=== PATIENT | male | born 1950 | race African-American/Black ===

== ENCOUNTER 2022-09-20 14:20 | Inpatient (IN) | payer OTHER ==
[2022-09-20 15:18] VITALS: BMI 31.2
[2022-09-20] MEDS ORDERED: CYCLOBENZAPRINE HCL 10 MG TABLET (FP) PO PRN (19:07)
[2022-09-20] MEDS ORDERED: MAG HYDROX/AL HYDROX/SIMETH 30 ML UNIT-DOSE CUP PO PRN (19:36)
[2022-09-20] MEDS ORDERED: MELATONIN 5 MG TABLETS PO PRN (19:36)
[2022-09-20] MEDS ORDERED: MAGNESIUM HYDROX 2400MG/30ML ORAL SUSPENSION 30 ML CUP PO PRN (19:36)
[2022-09-20] MEDS ORDERED: LOPERAMIDE HCL 2 MG CAPSULE PO PRN (19:36)
[2022-09-20] MEDS ORDERED: guaiFENesin 600 MG TABLET.ER (FP) PO PRN (19:36)
[2022-09-20] MEDS ORDERED: COLLOIDAL OATMEAL 1 BAR EACH TP PRN (19:36)
[2022-09-20] MEDS ORDERED: AMMONIUM LACTATE 12% LOTION 225 GM BOTTLE TP PRN (19:36)
[2022-09-20] MEDS ORDERED: P-EPHED 60MG/TRIPROLIDI 2.5MG TABLET PO PRN (19:36)
[2022-09-20] MEDS ORDERED: ACETAMINOPHEN 325 MG TABLET (FP) PO PRN (19:36)
[2022-09-20] MEDS ORDERED: POLYETHYLENE GLYCOL (HEALTHYLAX) 3350 17 GM PACKET PO PRN (19:36)
[2022-09-20] MEDS ORDERED: BENZONATATE 200 MG CAPSULE PO PRN (19:36)
[2022-09-20] MEDS ORDERED: BENZOCAINE/MENTHOL (CHLORASEPTIC ) LOZENGE MM PRN (19:36)
[2022-09-20] MEDS ORDERED: TUBERCULIN PPD 5 TU/0.1ML SYRINGE (IN PATIENT USE ONLY) ID ONE (20:15)
[2022-09-20] MEDS ORDERED: HYDROCHLOROTHIAZIDE 12.5 MG CAPSULE (FP) ONE (20:15)
[2022-09-20] MEDS ORDERED: TUBERCULIN PPD 5 TU/0.1ML VIAL ID ONE (20:34)
[2022-09-20] MEDS: HYDROCHLOROTHIAZIDE 12.5 MG CAPSULE (FP) PO SCH (21:01)
[2022-09-20] MEDS: PETROLATUM, WHITE 30 GM TUBE TP SCH (21:11)
[2022-09-20] MEDS ORDERED: THIAMINE HCL 100 MG TABLET (FP) PO SCH (22:00)
[2022-09-21 06:49] VITALS: RESP 18; TEMP 97.5
[2022-09-21] MEDS ORDERED: CALC PO SCH (10:00)
[2022-09-21] MEDS ORDERED: MAGNES PO SCH (10:00)
[2022-09-21] MEDS ORDERED: ASCORBIC ACID 500 MG TABLET (FP) PO SCH (10:00)
[2022-09-21] MEDS ORDERED: B6 PO SCH (10:00)
[2022-09-21] MEDS ORDERED: [UNRECOGNIZED DRUG - OTHER] PO SCH (10:00)
[2022-09-21] MEDS ORDERED: ASCORBIC ACID 1000 MG PO SCH (10:00)
[2022-09-21] MEDS ORDERED: D3 PO SCH (10:00)
[2022-09-21] MEDS ORDERED: PRENATAL VITAMINS W/ FOLIC ACID TABLET (FP) PO SCH (10:00)
[2022-09-21] MEDS ORDERED: MANGAN PO SCH (10:00)
[2022-09-21] MEDS: HYDROCHLOROTHIAZIDE 12.5 MG CAPSULE (FP) PO SCH (10:31)
[2022-09-21] MEDS: PETROLATUM, WHITE 30 GM TUBE TP SCH (10:32)
[2022-09-21 11:47] LABS: PH,URINE 6.5 (5.0-8.0); URINE APPEARANCE CLEAR; URINE BILIRUBIN NEGATIVE (NEGATIVE); URINE COLOR DK YELLOW; URINE GLUCOSE (UA) NEGATIVE (NEGATIVE); URINE KETONE NEGATIVE (NEGATIVE); URINE LEUK ESTERASE NEGATIVE (NEGATIVE); URINE NITRITE NEGATIVE (NEGATIVE); URINE PROTEIN NEGATIVE (NEGATIVE); URINE UROBILINOGEN 0.2 mg/dL (0.2-1.0)
[2022-09-21 18:22] VITALS: BP 188/118; PULSE 80
== END 2022-09-21 18:00 | disposition left against medical advice (07) | DRG 894 ==
LOC: YASAS 14:20 → Y3W 20:12
PROVIDERS: ADMIT Allergy & Immunology; ATTEND Allergy & Immunology
PROC: HZ42ZZZ Group Counseling for Substance Abuse Treatment, Cognitive-Behavioral (ICD-10-PCS; principal; 2022-09-20)
DX: F10.20 Alcohol dependence, uncomplicated (principal); F14.20 Cocaine dependence, uncomplicated; F17.210 Nicotine dependence, cigarettes, uncomplicated; I10 Essential (primary) hypertension
CPT/HCPCS: 81003; 87635